=== PATIENT | female | born 1990 | race Caucasian/White ===

== ENCOUNTER → 2023-09-15 07:18 | Outpatient (REF) | payer OTHER, SELFPAY | LOC: PNTC 07:18 | PROVIDERS: ATTENDING PHYSICIAN Obstetrics & Gynecology | DX: Z36.0 Encounter for antenatal screening for chromosomal anomalies (principal); Z36.82 Encounter for antenatal screening for nuchal translucency | CPT/HCPCS: 36415; 76801; 76813 ==

== ENCOUNTER → 2023-09-27 15:30 | Outpatient (REF) | payer OTHER, SELFPAY | LOC: PNTC 15:30 | PROVIDERS: ATTENDING PHYSICIAN Obstetrics & Gynecology | DX: Z34.90 Encounter for supervision of normal pregnancy, unspecified, unspecified trimester (principal); O46.92 Antepartum hemorrhage, unspecified, second trimester | CPT/HCPCS: 76805 ==

== ENCOUNTER → 2023-11-10 14:47 | Outpatient (REF) | payer OTHER, SELFPAY | LOC: PNTC 14:47 | PROVIDERS: ATTENDING PHYSICIAN Obstetrics & Gynecology | DX: O43.90 Unspecified placental disorder, unspecified trimester (principal) | CPT/HCPCS: 76805; 76817 ==

== ENCOUNTER → 2024-01-04 15:48 | Outpatient (REF) | payer OTHER, SELFPAY | LOC: PNTC 15:48 | PROVIDERS: ATTENDING PHYSICIAN Obstetrics & Gynecology | DX: O43.119 Circumvallate placenta, unspecified trimester (principal) | CPT/HCPCS: 76816 ==

== ENCOUNTER → 2024-02-02 15:19 | Outpatient (REF) | payer OTHER, SELFPAY | LOC: PNTC 15:19 | PROVIDERS: ATTENDING PHYSICIAN Obstetrics & Gynecology | DX: O43.119 Circumvallate placenta, unspecified trimester (principal) | CPT/HCPCS: 76816 ==

== ENCOUNTER → 2024-03-05 17:08 | Outpatient (REF) | payer OTHER, SELFPAY | LOC: PNTC 17:08 | PROVIDERS: ATTENDING PHYSICIAN Obstetrics & Gynecology | DX: O43.119 Circumvallate placenta, unspecified trimester (principal) | CPT/HCPCS: 76816 ==

== ENCOUNTER 2024-03-22 02:05 | Inpatient (IN) | payer OTHER, SELFPAY ==
[2024-03-22 02:25] VITALS: BP 110/57; BMI 20.7
[2024-03-22 02:40] LABS: % Basophils 0.6 % (0-2); % Eosinophils 1.1 % (0-6); % Immature Granulocytes 0.8 % (0-0.5); % Lymphocytes 37.3 % (20.5-51.1); % Monocytes 8.5 % (1.7-9.3); % Neutrophils 51.7 % (42.2-75.2); Absolute Eosinophils 0.1 10^3/uL (0-0.7); Absolute Immature Granulocytes 0.1 10^3/uL (0-0.05); Absolute Lymphocytes 2.4 10^3/uL (1.2-3.4); Absolute Monocytes 0.6 10^3/uL (0.1-0.6); Absolute Neutrophils 3.4 10^3/uL (1.4-6.5); Hematocrit 37.3 % (37.0-47.0); Hemoglobin 12.5 g/dL (12.0-16.0); Mean Corp Hgb Conc. 33.5 g/dL (33.0-37.0); Mean Corpuscular Hgb 30.3 pg (27.0-31.0); Mean Corpuscular Volume 90.3 fL (81.0-99.0); Mean Platelet Volume 11.6 fL (7.4-10.4); Nucleated Red Blood Cells % 0 %; Platelet Count 182 10^3/uL (130-400); Red Blood Cell Count 4.13 10^6/uL (4.20-5.40); Red Cell Dist. Width 12.5 % (11.5-14.5); White Blood Cell Count 6.5 10^3/uL (4.8-10.8)
[2024-03-22] MEDS: PITOCIN 30 UNITS/NSS 500 ML IV (02:49)
[2024-03-22 03:03] LABS: Cord ABG Comment CORD BLOOD; HCO3 Cord ABG 18.9 mmol/L; O2 Saturation % Cord ABG 80.8 %; PCO2 Cord ABG 26 mmHg; PO2 Cord ABG 40 mmHg; pH Cord ABG 7.47
[2024-03-22 03:05] LABS: B.E. Cord ABG -3.5 mMOL/L; HCO3 Cord ABG 18.8 mmol/L; O2 Saturation % Cord ABG 79.3 %; PCO2 Cord ABG 27 mmHg; PO2 Cord ABG 41 mmHg; pH Cord ABG 7.45
[2024-03-22] MEDS: TYLENOL 650 MG PO ×5 (04:01→22:59)
[2024-03-23] MEDS: TYLENOL 650 MG PO ×2 (04:40→09:55)
[2024-03-23 05:03] LABS: Hemoglobin 11.8 g/dL (12.0-16.0)
[2024-03-23 11:33] LABS: Syphilis/T. pallidum Ab Reflex Negative (Negative)
== END 2024-03-23 17:26 | disposition home or self-care (01) | DRG 807 ==
LOC: LDRP 02:05
PROVIDERS: Obstetrics & Gynecology; ADMITTING PHYSICIAN Obstetrics & Gynecology; ATTENDING PHYSICIAN Obstetrics & Gynecology; FAMILY PHYSICIAN Internal Medicine
PROC: 10D07Z6 Extraction of Products of Conception, Vacuum, Via Natural or Artificial Opening (ICD-10-PCS; 2024-03-22)
PROC: 0HQ9XZZ Repair Perineum Skin, External Approach (ICD-10-PCS; 2024-03-22)
DX: O48.0 Post-term pregnancy (principal); Z37.0 Single live birth; Z3A.40 40 weeks gestation of pregnancy; O76 Abnormality in fetal heart rate and rhythm complicating labor and delivery; O70.9 Perineal laceration during delivery, unspecified
CPT/HCPCS: 36415; 82803; 85014; 85018; 85025; 86780; 86850; 86900; 86901